=== PATIENT | male | born 1940 | race Asian ===

== ENCOUNTER 2020-09-23 14:35 | Inpatient (IN) | payer MEDICARE ==
[~2020-09-23] VITALS: Ht 170.2 cm; Wt 79.2 kg
[2020-09-23] MEDS ORDERED: Z GUARD REMEDY PASTE 57 GM TUBE TOP PRN (21:00)
--- NOTE | 2020-09-23 21:00 | NUR ---
Pt arrived at 2022 via [place] from [facility]. Admitting Dx Acute CVA. AAO x4. No acute distress noted. Denies pain/ discomfort. VIP group contacted and made aware of admission. Dr. Leroy notified of admission. Med recon verified to continue all meds by Dr. [facility]. Oriented pt to unit. Needs attend too. Physical assessment completed. Skin intact. Safety measures maintained. Bed alarm on. Call light and personal items within reach. Will continue to monitor.
[2020-09-23 21:36] VITALS: BP 115/72
[2020-09-23] MEDS ORDERED: CLOP75TA33 PO (21:40)
[2020-09-23] MEDS ORDERED: ESCI10TA PO (21:40)
[2020-09-23] MEDS ORDERED: CARV3.122 PO (21:40)
[2020-09-23] MEDS ORDERED: ASPI-869 PO (21:40)
[2020-09-23] MEDS ORDERED: FAMO20TA8 PO (21:40)
[2020-09-23] MEDS ORDERED: CLON1TAB12 PO (21:40)
[2020-09-23] MEDS ORDERED: OLOP2.5D12 EACHEYE (21:40)
[2020-09-23] MEDS ORDERED: POLY17PO4 PO (21:40)
[2020-09-23] MEDS ORDERED: ATOR80TA PO (21:40)
[2020-09-23] MEDS ORDERED: DOXE10CA2 PO (21:40)
[2020-09-23] MEDS ORDERED: ENOX30DI5 SQ (21:40)
[2020-09-24] MEDS ORDERED: ONDANSETRON HCL 4 MG TABLET PO PRN (00:45)
--- NOTE | 2020-09-24 02:07 | NUR ---
Pt c/o of nausea and had an episode of emesis. Notified Nephrology group. Dr. Soriano Wilber building consultant with new orders of Zofran 4mg PO PRN, administered, will continue to monitor.
[2020-09-24] MEDS ORDERED: CLONAZEPAM 1 MG TABLET PO SCH (02:45)
[2020-09-24] MEDS ORDERED: CLONAZEPAM 1 MG TABLET PO PRN ×2 (03:00→08:00)
[2020-09-24 04:47] VITALS: BP 131/75
[2020-09-24 07:02] LABS: ALANINE AMINOTRANSFERASE 59 U/L (16-63); ALKALINE PHOSPHATASE 200 U/L (50-136); ASPARTATE AMINOTRANSFERASE 39 U/L (15-37); BILIRUBIN,TOTAL 0.8 mg/dL (0.2-1.0); CARBON DIOXIDE 24 mmol/L (21-32); CHLORIDE 109 mmol/L (98-107); CREATININE 1.8 mg/dL (0.6-1.3); GLUCOSE 107 mg/dL (74-106); POTASSIUM 5.3 mmol/L (3.5-5.1); TOTAL PROTEIN, SERUM 5.6 g/dL (6.4-8.2); UREA NITROGEN, BLOOD 54 mg/dL (7-18)
[2020-09-24 08:00] VITALS: BP 122/71
[2020-09-24] MEDS ORDERED: SODIUM POLYSTYRENE SULFONATE 15 G/60 ML LIQUID UDC PO ONE (08:30)
[2020-09-24] MEDS ORDERED: ASPIRIN EC 81 MG TABLET.DR PO SCH (09:00)
[2020-09-24] MEDS ORDERED: ESCITALOPRAM OXALATE 10 MG TABLET PO SCH (09:00)
[2020-09-24] MEDS ORDERED: ENOXAPARIN SODIUM 30 MG/0.3 ML DISP.SYRIN SQ SCH (09:00)
[2020-09-24] MEDS ORDERED: FAMOTIDINE 20 MG TABLET PO SCH (09:00)
[2020-09-24] MEDS ORDERED: MIRALAX 17 GM POWD.PACK PO SCH (09:00)
[2020-09-24] MEDS ORDERED: CLOPIDOGREL 75 MG TABLET PO SCH (09:00)
[2020-09-24] MEDS ORDERED: ATORVASTATIN 40 MG TABLET PO SCH (09:00)
--- NOTE | 2020-09-24 09:00 | NUR ---
Dr. Nixon notified of pt's lab results with new order in place, will carry out.
[2020-09-24] MEDS: CARVEDILOL 3.125 MG TABLET PO SCH ×2 (09:20→18:29)
--- NOTE | 2020-09-24 10:52 | NUR ---
MARCUS NOTE: SW met with patient and conducted the PHQ0 post stroke depression screening. Patient scored a level of 16 which indicates moderately severe on the screening survey. SW requested a psychiatry consultation from PIERRE Crum to request from doctor. Patient expressed feeling depressed and suicidal however patient did not state an intent or plan to commit suicide. Truck Unloader informed patient about the importance of stroke. Patient accepted resources although hospice social worker provided stroke referrals such as: Stroke Family Warmline at (7-412-5-STROKE) and Caring for a stroke survivor ( ). stucco worker also educated patient on the signs of Stroke and to immediately call 911. Truck Unloader provided patient with a stroke educational packet with information such as; Dietary food, what stroke is, risks, emotional support, finding support, medical management, and effects of stroke.
--- NOTE | 2020-09-24 11:00 | NUR ---
Dr. Nixon notified of request for psych consult, new order in place. M[facility] charge nurse notified, face sheet faxed.
[2020-09-24 12:35] LABS: HEMATOCRIT 39.4 % (36.7-47.1); MEAN CORPUSCULAR HEMOGLOBIN 23.3 uug (23.8-33.4); MEAN CORPUSCULAR VOLUME 78.6 fL (73.0-96.2); PLATELET COUNT (AUTO) 337 K/uL (152-348)
[2020-09-24 14:30] VITALS: BP 100/58
[2020-09-24] MEDS ORDERED: CALCIUM CARBONATE 500 MG TAB.CHEW PO PRN (14:30)
[2020-09-24] MEDS ORDERED: POLYVINYL ALCOHOL OPHT DROPS 15 ML BOTTLE EACHEYE PRN (14:30)
--- NOTE | 2020-09-24 14:34 | NUR ---
Per PT patient able to participate and ambulate with FWW, however had to take breaks to use restroom due to Kayexalate administration. Per PT, pt reported "heartburn pain" during session. Upon assessment, pt denied pain and stated "I think it was because of coffee". Pt also reported weakness today. Vital signs taken L eye edema noted, pt denied pain but stated eye felt "itchy" and that it had "been going on for a while". Dr Nixon notified with new orders in place, will carry out.
--- NOTE | 2020-09-24 15:16 | NUR ---
INTERDISCIPLINARY TEAM CONFERENCE
[2020-09-24 16:45] VITALS: BP 102/59
[2020-09-24 18:32] VITALS: BP 125/76
--- NOTE | 2020-09-24 19:00 | NUR ---
Dr. Nixon at bedside, spoke with pt and pt's Debi. Pt alert, awake, eating dinner. VSS at this time. Due medication administered per order. Pt able to ambulate safely to restroom with FWW. Safety maintained. Will endorse to shift commander nurse for continuity of care.
[2020-09-24 20:00] VITALS: BP 103/61
[2020-09-24] MEDS ORDERED: DOXEPIN 10 MG CAPSULE PO SCH (21:00)
--- NOTE | 2020-09-24 21:15 | NUR ---
received pt resting in bed, family at bedside. Denies any discomfort/ pain. Axox3, able to make needs known. VSS. All due medications administered and tolerated well. Pt able to ambulate safely to restroom with FWW. Safety measures maintained. 2100 Dr. Ponce at bedside, assessed pt and new orders in place. Patient is comfortable and all personal items within reach. Continue plan of care .
[2020-09-24] MEDS ORDERED: CLONAZEPAM 0.5 MG TABLET PO SCH (21:30)
[2020-09-24 23:03] LABS: CARBON DIOXIDE 26 mmol/L (21-32); CHLORIDE 107 mmol/L (98-107); CREATININE 1.7 mg/dL (0.6-1.3); GLUCOSE 98 mg/dL (74-106); MAGNESIUM 2.3 mg/dL (1.8-2.4); POTASSIUM 4.7 mmol/L (3.5-5.1); UREA NITROGEN, BLOOD 47 mg/dL (7-18)
--- NOTE | 2020-09-24 23:30 | NUR ---
pt complaint of chest pain. Sates " intense, feels like my heart is being squeezed" 7/10 pain. Denies any other symptoms, no SOB, pain is not radiating. VVS: BP 106/63 HR [address]%. [address] Tiffany Rossi made aware with new orders of stat EKG, Troponin, potassium, CMP, and magnesium. EKG results sinus rhythm with PAC and Elevated troponin 0.077, Dr.Cheryl Rossi made aware. New order of repeat troponin in 6hr. Administered Klonopin. Will continue to monitor pt.
--- NOTE | 2020-09-25 | NUR ---
pt is sleeping, no acute distress noted. VSS. pt complain of mild chest pain 3-4/10, states " feel a little better. Will continue to monitor.
[2020-09-25 04:00] VITALS: BP 145/79
--- NOTE | 2020-09-25 04:20 | NUR ---
Received critical troponin 6.605 MD made aware with new orders to transfer to Telemetry and start Heparin drip per pharmacy. Pt is resting in bed no acute distress at this time denies any chest pain at the moment. No SOB noted. Vitals BP 145/79 Hr89 O2 96%.
[2020-09-25] MEDS ORDERED: HEPARIN/D5W DRIP 500 ML IV PRN (06:15)
[2020-09-25] MEDS ORDERED: HEPARIN SODIUM,PORCINE 5,000 UNITS/ML VIAL IV ONE ×2 (06:15)
[2020-09-25] MEDS ORDERED: HEPARIN/D5W DRIP 500 ML ONE (06:33)
--- NOTE | 2020-09-25 06:50 | NUR ---
Received PTT 31.7, Dr. Darrius Luna made aware ordered heparin Bolus, order carried out. pharmacy made aware. Will endorse to oncoming shift.
[2020-09-25] MEDS ORDERED: TRAZODONE 50 MG TABLET PO SCH (21:00)
== END 2020-09-25 08:00 | disposition short-term general hospital (02) | DRG 57 ==
LOC: TELE3 09-25 04:37
PROVIDERS: ADMIT Physical Medicine & Rehabilitation Pain Medicine; ATTEND Physical Medicine & Rehabilitation Pain Medicine
DX: I69.354 Hemiplegia and hemiparesis following cerebral infarction affecting left non-dominant side (principal); N17.9 Acute kidney failure, unspecified; I69.393 Ataxia following cerebral infarction; I69.322 Dysarthria following cerebral infarction; I69.391 Dysphagia following cerebral infarction; R13.10 Dysphagia, unspecified; R07.9 Chest pain, unspecified; E78.5 Hyperlipidemia, unspecified; F32.9 Major depressive disorder, single episode, unspecified; I11.0 Hypertensive heart disease with heart failure; I50.9 Heart failure, unspecified; Z95.810 Presence of automatic (implantable) cardiac defibrillator; I25.10 Atherosclerotic heart disease of native coronary artery without angina pectoris; I65.29 Occlusion and stenosis of unspecified carotid artery; Z79.02 Long term (current) use of antithrombotics/antiplatelets
CPT/HCPCS: 36415; 70030-TC; 83735; 85025; 85730; 93005; J1644; J1650; Q0162

== ENCOUNTER 2020-09-25 04:48 | Inpatient (IN) | payer MEDICARE ==
[~2020-09-25] VITALS: Ht 170.2 cm; Wt 78.9 kg
[~2020-09-25 04:48] MED LIST: ASPI-869 PO; ATOR80TA PO; CARV3.122 PO; CLON1TAB12 PO; CLOP75TA33 PO; DOXE10CA2 PO; ENOX30DI5 SQ; ESCI10TA PO; FAMO20TA8 PO; OLOP2.5D12 EACHEYE; POLY17PO4 PO
--- NOTE | 2020-09-25 08:00 | NUR ---
Patient transferred from ARU to Telemetry. Patient awake, alert and orientedx4. On room air. Patient denies pain/ discomfort at this time. patient with right FA #20 gauge IV heplock. Will continue to monitor.
[2020-09-25] MEDS ORDERED: HEPARIN/D5W 25000 UNITS/500 ML BAG IV ONE (09:00)
[2020-09-25] MEDS ORDERED: CLOPIDOGREL 75 MG TABLET PO SCH (09:00)
[2020-09-25] MEDS ORDERED: ASPIRIN 81 MG TAB.CHEW PO SCH (09:00)
[2020-09-25] MEDS ORDERED: HEPARIN/D5W DRIP 500 ML IV PRN (09:15)
--- NOTE | 2020-09-25 09:30 | NUR ---
Patient started on Heparin/ D5W drip 500ml per MD order. Heparin drip starting at 1185 units at 23.7ml/hr, per protocol. Patient tolerating well. Will continue to monitor.
[2020-09-25] MEDS ORDERED: METOPROLOL SUCCINATE XL 50 MG TAB.SR.24H PO SCH (10:00)
[2020-09-25] MEDS: ATORVASTATIN 40 MG TABLET PO SCH ×2 (10:32→20:24)
[2020-09-25 11:32] VITALS: BP 124/53
[2020-09-25] MEDS ORDERED: ONDANSETRON HCL 4 MG TABLET PO PRN (12:15)
[2020-09-25] MEDS ORDERED: LORAZEPAM 0.5 MG TABLET PO PRN (12:45)
--- NOTE | 2020-09-25 15:40 | NUR ---
Patient repeat PTT is 114.7. Heparin drip held per protocol. MD informed.
[2020-09-25 16:00] VITALS: BP 113/68
--- NOTE | 2020-09-25 18:57 | NUR ---
Nursing report given to PIERRE Oswald of [facility] for transfer.
--- NOTE | 2020-09-25 19:20 | NUR ---
Received pt in bed, awake and verbally responsive, able to make needs known. Denies any chest pain, dizziness or lightheadedness. Pt with ongoing heparin drip at 935 units on his R forearm, infusing well. Safety measures initiated, call light within reach. For transfer to [facility], will continue to monitor.
--- NOTE | 2020-09-25 21:15 | NUR ---
Transported to [facility] via [facility]. No signs of acute distress, no complains of chest pain, dizziness or lightheadedness. Okay to transfer with heparin drip on hold per Dr. Rivera. Belongings with the pt. Stable.
[2020-10-21] MEDS ORDERED: FURO40TA5 PO (17:35)
[2020-10-21] MEDS ORDERED: ASPI-618 PO (17:35)
[2020-10-21] MEDS ORDERED: ATOR40TA PO (17:35)
[2020-10-21] MEDS ORDERED: Nepro PO (17:35)
[2020-10-21] MEDS ORDERED: MENT71OI TOP (17:35)
[2020-10-21] MEDS ORDERED: FOLI0.8T2 PO (17:35)
[2020-10-21] MEDS ORDERED: PANT40TA2 PO (17:35)
== END 2020-09-25 21:15 | disposition short-term general hospital (02) | DRG 282 ==
LOC: TELE3 04:48
PROVIDERS: ADMIT Internal Medicine; ATTEND Internal Medicine
DX: I21.4 Non-ST elevation (NSTEMI) myocardial infarction (principal); I25.10 Atherosclerotic heart disease of native coronary artery without angina pectoris; I25.5 Ischemic cardiomyopathy; Z98.61 Coronary angioplasty status; Z86.73 Personal history of transient ischemic attack (TIA), and cerebral infarction without residual deficits; Z20.822 Contact with and (suspected) exposure to COVID-19
CPT/HCPCS: 36415; 71045; 85730; 93307; G0378; J1644; Q0162

== ENCOUNTER 2020-10-08 15:01 | Inpatient (IN) | payer MEDICARE, BC ==
[~2020-10-08] VITALS: Ht 170.2 cm; Wt 78.9 kg
[2020-10-08] MEDS ORDERED: OLOPATADINE 0.1% OPHT DROP 5 ML BOTTLE EACHEYE PRN (18:30)
[2020-10-08 20:00] VITALS: BP 120/63
[2020-10-08] MEDS: CARVEDILOL 3.125 MG TABLET PO SCH (20:43)
[2020-10-08] MEDS: DOXEPIN 10 MG CAPSULE PO SCH (21:02)
[2020-10-08] MEDS: CLONAZEPAM 1 MG TABLET PO PRN (21:30)
[2020-10-09 04:00] VITALS: BP 110/69
[2020-10-09 08:03] VITALS: BP 106/71
[2020-10-09] MEDS: CLOPIDOGREL 75 MG TABLET PO SCH (09:39)
[2020-10-09] MEDS: CARVEDILOL 3.125 MG TABLET PO SCH ×2 (09:39→18:00)
[2020-10-09] MEDS: ATORVASTATIN 40 MG TABLET PO SCH (09:39)
[2020-10-09] MEDS: ESCITALOPRAM OXALATE 10 MG TABLET PO SCH (09:39)
[2020-10-09] MEDS: MIRALAX 17 GM POWD.PACK PO SCH (09:39)
[2020-10-09] MEDS ORDERED: ASPI-866 PO (12:45)
[2020-10-09] MEDS ORDERED: BUME1TAB8 PO (12:47)
[2020-10-09] MEDS: FAMOTIDINE 20 MG TABLET PO SCH (13:39)
[2020-10-09] MEDS: ASPIRIN EC 81 MG TABLET.DR PO SCH (13:39)
[2020-10-09 14:05] LABS: *BILIRUBIN,URIN 2+ (NEGATIVE); *BLOOD, URINE 3+ (NEGATIVE); *CLARITY,URINE CLEAR (CLEAR); *COLOR,URINE YELLOW (YELLOW); *KETONES,URINE NEGATIVE (NEGATIVE); LEUKOCYTE ESTERASE ,URINE 1+ (NEGATIVE); NITRITE, URINE NEGATIVE (NEGATIVE); UGLUCOSE NEGATIVE (NEGATIVE)
[2020-10-09 14:06] LABS: *CREATININE,URINE 149.1 mg/dL (30-125); *URINE TOTAL PROTEIN RANDOM 229.2 mg/dL (<150/24HR)
[2020-10-09 14:45] LABS: *OCCULT BLOOD STOOL POSITIVE (NEGATIVE)
[2020-10-09 16:05] VITALS: BP 117/68
[2020-10-09 18:18] LABS: RBC,URINE 80-100 /HPF (0-3)
[2020-10-09 18:19] LABS: BACTERIA,URINE MA /HPF (NONE SEEN); COARSE GRANULAR CASTS,URINE FEW /LPF; SQUAMOUS EPITHELIAL CELL,UR FEW /HPF (NONE SEEN); URINE AMORPHOUS URATE MANY /HPF
[2020-10-09 19:01] LABS: HEMATOCRIT 44.3 % (36.7-47.1); MEAN CORPUSCULAR HEMOGLOBIN 22.6 uug (23.8-33.4); MEAN CORPUSCULAR VOLUME 75.6 fL (73.0-96.2); PLATELET COUNT (AUTO) 187 K/uL (152-348)
[2020-10-09 19:04] LABS: ALANINE AMINOTRANSFERASE 508 U/L (16-63); ALKALINE PHOSPHATASE 316 U/L (50-136); ASPARTATE AMINOTRANSFERASE 287 U/L (15-37); BILIRUBIN,TOTAL 4.4 mg/dL (0.2-1.0); CARBON DIOXIDE 23 mmol/L (21-32); CHLORIDE 102 mmol/L (98-107); CREATININE 4.8 mg/dL (0.6-1.3); GLUCOSE 130 mg/dL (74-106); MAGNESIUM 2.7 mg/dL (1.8-2.4); PHOSPHOROUS 6.3 mg/dL (2.5-4.9); TOTAL PROTEIN, SERUM 6.1 g/dL (6.4-8.2)
[2020-10-09 19:12] LABS: UREA NITROGEN, BLOOD 91 mg/dL (7-18)
[2020-10-09 20:00] VITALS: BP 103/60
[2020-10-09] MEDS: DOXEPIN 10 MG CAPSULE PO SCH (21:00)
[2020-10-10] MEDS: CLONAZEPAM 1 MG TABLET PO PRN (00:29)
[2020-10-10 04:00] VITALS: BP 110/69
[2020-10-10 05:45] LABS: HEMATOCRIT 36.5 % (36.7-47.1); MEAN CORPUSCULAR HEMOGLOBIN 22.8 uug (23.8-33.4); MEAN CORPUSCULAR VOLUME 73.8 fL (73.0-96.2); PLATELET COUNT (AUTO) 176 K/uL (152-348)
[2020-10-10 06:13] LABS: IRON, SERUM 72 ug/dL (50-175)
[2020-10-10 06:30] LABS: EOSINOPHILS % (MANUAL) 2 % (0-8); LYMPHOCYTES % (MANUAL) 5 % (20-40); MONOCYTES % (MANUAL) 8 % (2-10); NEUTROPHILS % (MANUAL) 85 % (42-75)
[2020-10-10 07:12] LABS: ALANINE AMINOTRANSFERASE 380 U/L (16-63); ALKALINE PHOSPHATASE 240 U/L (50-136); ASPARTATE AMINOTRANSFERASE 181 U/L (15-37); BILIRUBIN,TOTAL 3.5 mg/dL (0.2-1.0); CARBON DIOXIDE 24 mmol/L (21-32); CHLORIDE 104 mmol/L (98-107); CREATININE 4.9 mg/dL (0.6-1.3); FERRITIN 532 ng/mL (26-388); GLUCOSE 103 mg/dL (74-106); MAGNESIUM 2.6 mg/dL (1.8-2.4); PHOSPHOROUS 6.4 mg/dL (2.5-4.9); POTASSIUM 3.7 mmol/L (3.5-5.1)
[2020-10-10 07:26] LABS: CREATINE KINASE, TOTAL 57 U/L (39-308)
[2020-10-10 07:32] LABS: UREA NITROGEN, BLOOD 92 mg/dL (7-18)
[2020-10-10 08:59] VITALS: BP 115/72
[2020-10-10] MEDS: FAMOTIDINE 20 MG TABLET PO SCH (09:00)
[2020-10-10] MEDS: ESCITALOPRAM OXALATE 10 MG TABLET PO SCH (09:00)
[2020-10-10] MEDS: MIRALAX 17 GM POWD.PACK PO SCH (09:00)
[2020-10-10] MEDS: ASPIRIN EC 81 MG TABLET.DR PO SCH (09:00)
[2020-10-10] MEDS: ATORVASTATIN 40 MG TABLET PO SCH (09:00)
[2020-10-10] MEDS: CLOPIDOGREL 75 MG TABLET PO SCH (09:00)
[2020-10-10] MEDS: CARVEDILOL 3.125 MG TABLET PO SCH ×2 (11:46→18:43)
[2020-10-10 15:32] VITALS: BP 126/63
[2020-10-10 20:10] VITALS: BP 95/51
[2020-10-10] MEDS: DOXEPIN 10 MG CAPSULE PO SCH (20:34)
[2020-10-11 05:10] VITALS: BP 101/61
[2020-10-11 07:09] LABS: HEMATOCRIT 34.2 % (36.7-47.1); MEAN CORPUSCULAR HEMOGLOBIN 23.4 uug (23.8-33.4); MEAN CORPUSCULAR VOLUME 73.3 fL (73.0-96.2); PLATELET COUNT (AUTO) 166 K/uL (152-348)
[2020-10-11 07:37] LABS: THYROID STIMULATING HORMONE 5.343 mIU/mL (0.358-3.740)
[2020-10-11 07:38] LABS: ALANINE AMINOTRANSFERASE 306 U/L (16-63); ALKALINE PHOSPHATASE 215 U/L (50-136); ASPARTATE AMINOTRANSFERASE 102 U/L (15-37); BILIRUBIN,TOTAL 3.5 mg/dL (0.2-1.0); CARBON DIOXIDE 24 mmol/L (21-32); CHLORIDE 101 mmol/L (98-107); CHOLESTEROL 52 mg/dL (<200); GLUCOSE 85 mg/dL (74-106); HDL CHOLESTEROL 11 mg/dL (40-60); MAGNESIUM 2.6 mg/dL (1.8-2.4); PHOSPHOROUS 6.6 mg/dL (2.5-4.9); TOTAL PROTEIN, SERUM 4.9 g/dL (6.4-8.2); TRIGLYCERIDES 67 MG/DL (30-150)
[2020-10-11 07:47] LABS: UREA NITROGEN, BLOOD 93 mg/dL (7-18)
[2020-10-11 08:00] VITALS: BP 98/54
[2020-10-11 08:06] LABS: HEPATITIS B SURFACE AB Non Reactive (.); HEPATITIS B SURFACE AG Negative (Negative)
[2020-10-11] MEDS: CLOPIDOGREL 75 MG TABLET PO SCH (10:20)
[2020-10-11] MEDS: ESCITALOPRAM OXALATE 10 MG TABLET PO SCH (10:21)
[2020-10-11] MEDS: ATORVASTATIN 40 MG TABLET PO SCH (10:21)
[2020-10-11] MEDS: ASPIRIN EC 81 MG TABLET.DR PO SCH (10:21)
[2020-10-11] MEDS: CARVEDILOL 3.125 MG TABLET PO SCH ×2 (10:21→17:54)
[2020-10-11] MEDS: FAMOTIDINE 20 MG TABLET PO SCH (10:22)
[2020-10-11] MEDS: MIRALAX 17 GM POWD.PACK PO SCH (10:24)
[2020-10-11] MEDS ORDERED: LORAZEPAM 2 MG/1 ML VIAL IV ONE (12:30)
[2020-10-11] MEDS: IV 1/2NS 1000 ML 1,000 ML IV PRN (12:56)
[2020-10-11 16:54] VITALS: BP 101/65
[2020-10-11] MEDS: DOXEPIN 10 MG CAPSULE PO SCH (20:23)
[2020-10-11] MEDS ORDERED: ATORVASTATIN 10 MG TABLET PO SCH (21:00)
[2020-10-11 21:02] VITALS: BP 102/55
[2020-10-12] MEDS: IV 1/2NS 1000 ML 1,000 ML IV PRN (02:43)
[2020-10-12 04:50] VITALS: BP 103/49
[2020-10-12 08:00] VITALS: BP 105/57
[2020-10-12] MEDS: CARVEDILOL 3.125 MG TABLET PO SCH ×2 (08:00→18:00)
[2020-10-12] MEDS: CLOPIDOGREL 75 MG TABLET PO SCH (08:52)
[2020-10-12] MEDS: ASPIRIN EC 81 MG TABLET.DR PO SCH (08:52)
[2020-10-12] MEDS: ESCITALOPRAM OXALATE 10 MG TABLET PO SCH (08:53)
[2020-10-12] MEDS: FAMOTIDINE 20 MG TABLET PO SCH (08:53)
[2020-10-12] MEDS: MIRALAX 17 GM POWD.PACK PO SCH (08:53)
[2020-10-12] MEDS: PIPERACILLIN/TAZO 2.25 G in IV DEXTROSE 5% 50 ML IV SCH ×3 (11:43→21:04)
[2020-10-12 12:00] VITALS: BP 110/52
[2020-10-12 12:13] LABS: *BILIRUBIN,URIN NEGATIVE (NEGATIVE); *BLOOD, URINE 2+ (NEGATIVE); *CLARITY,URINE CLOUDY (CLEAR); *COLOR,URINE YELLOW (YELLOW); *KETONES,URINE NEGATIVE (NEGATIVE); LEUKOCYTE ESTERASE ,URINE 3+ (NEGATIVE); NITRITE, URINE NEGATIVE (NEGATIVE); PH,URINE 5.5 (5.0-8.0); UGLUCOSE NEGATIVE (NEGATIVE)
[2020-10-12 12:41] LABS: BACTERIA,URINE MANY /HPF (NONE SEEN); RBC,URINE 20-50 /HPF (0-3); SQUAMOUS EPITHELIAL CELL,UR FEW /HPF (NONE SEEN); WBC,URINE TNTC /HPF (0-3)
[2020-10-12 12:42] LABS: URINE AMORPHOUS URATE MANY /HPF
[2020-10-12 16:00] VITALS: BP 108/60
[2020-10-12 20:00] VITALS: BP 92/55
[2020-10-12] MEDS: DOXEPIN 10 MG CAPSULE PO SCH (21:04)
[2020-10-12] MEDS: ATORVASTATIN 40 MG TABLET PO SCH (21:04)
[2020-10-12] MEDS: CLONAZEPAM 1 MG TABLET PO PRN (21:04)
[2020-10-13 05:05] VITALS: BP 123/68
[2020-10-13] MEDS: PIPERACILLIN/TAZO 2.25 G in IV DEXTROSE 5% 50 ML IV SCH ×2 (05:07→17:28)
[2020-10-13 08:00] VITALS: BP 130/61
[2020-10-13] MEDS: ESCITALOPRAM OXALATE 10 MG TABLET PO SCH (08:28)
[2020-10-13] MEDS: ASPIRIN EC 81 MG TABLET.DR PO SCH (08:28)
[2020-10-13] MEDS: FAMOTIDINE 20 MG TABLET PO SCH (08:28)
[2020-10-13] MEDS: MIRALAX 17 GM POWD.PACK PO SCH (08:29)
[2020-10-13] MEDS: CLOPIDOGREL 75 MG TABLET PO SCH (08:29)
[2020-10-13] MEDS: CARVEDILOL 3.125 MG TABLET PO SCH ×2 (09:00→18:00)
[2020-10-13] MEDS ORDERED: PIPERACILLIN/TAZO 0.75 G in IV DEXTROSE 5% 50 ML IV PRN (09:15)
[2020-10-13 10:32] LABS: CARBON DIOXIDE 25 mmol/L (21-32); CHLORIDE 101 mmol/L (98-107); CREATININE 4.5 mg/dL (0.6-1.3); GLUCOSE 146 mg/dL (74-106); POTASSIUM 3.3 mmol/L (3.5-5.1)
[2020-10-13 10:38] LABS: UREA NITROGEN, BLOOD 91 mg/dL (7-18)
[2020-10-13 13:40] LABS: *BILIRUBIN,URIN NEGATIVE (NEGATIVE); *BLOOD, URINE 1+ (NEGATIVE); *COLOR,URINE YELLOW (YELLOW); *KETONES,URINE NEGATIVE (NEGATIVE); LEUKOCYTE ESTERASE ,URINE 1+ (NEGATIVE); NITRITE, URINE NEGATIVE (NEGATIVE); PH,URINE 5.5 (5.0-8.0); UGLUCOSE NEGATIVE (NEGATIVE)
[2020-10-13 13:49] LABS: *URINE TOTAL PROTEIN RANDOM 82.4 mg/dL (<150/24HR)
[2020-10-13 14:28] LABS: *CLARITY,URINE SLIGHTLY HAZY (CLEAR)
[2020-10-13 14:29] LABS: BACTERIA,URINE FEW /HPF (NONE SEEN); SQUAMOUS EPITHELIAL CELL,UR NONE SEEN /HPF (NONE SEEN); URIC ACID CRYSTALS,URINE MODERATE /HPF (NONE SEEN)
[2020-10-13 16:00] VITALS: BP 103/59
[2020-10-13] MEDS ORDERED: POTASSIUM CHLORIDE 20 MEQ TAB.PRT.SR PO ONE (17:15)
[2020-10-13] MEDS: ONDANSETRON 4 MG/2 ML VIAL IV PRN ×2 (17:47→20:29)
[2020-10-13 20:00] VITALS: BP 118/68
[2020-10-13] MEDS: DOXEPIN 10 MG CAPSULE PO SCH (20:30)
[2020-10-13] MEDS: ATORVASTATIN 40 MG TABLET PO SCH (20:30)
[2020-10-13] MEDS: CLONAZEPAM 1 MG TABLET PO PRN (20:30)
[2020-10-14 04:00] VITALS: BP 101/48
[2020-10-14 06:08] LABS: HEMATOCRIT 33.8 % (36.7-47.1); MEAN CORPUSCULAR HEMOGLOBIN 23.5 uug (23.8-33.4); MEAN CORPUSCULAR VOLUME 74.7 fL (73.0-96.2); PLATELET COUNT (AUTO) 190 K/uL (152-348)
[2020-10-14] MEDS: PIPERACILLIN/TAZO 2.25 G in IV DEXTROSE 5% 50 ML IV SCH (06:09)
[2020-10-14 06:25] LABS: BASOPHILS % (MANUAL) 1 % (0-2); EOSINOPHILS % (MANUAL) 1 % (0-8); LYMPHOCYTES % (MANUAL) 6 % (20-40); MONOCYTES % (MANUAL) 7 % (2-10); NEUTROPHILS % (MANUAL) 85 % (42-75)
[2020-10-14 06:27] LABS: ALANINE AMINOTRANSFERASE 172 U/L (16-63); ALKALINE PHOSPHATASE 200 U/L (50-136); ASPARTATE AMINOTRANSFERASE 40 U/L (15-37); BILIRUBIN,TOTAL 2.7 mg/dL (0.2-1.0); CARBON DIOXIDE 25 mmol/L (21-32); CHLORIDE 103 mmol/L (98-107); CREATININE 4.1 mg/dL (0.6-1.3); GLUCOSE 111 mg/dL (74-106); MAGNESIUM 2.5 mg/dL (1.8-2.4); PHOSPHOROUS 5.7 mg/dL (2.5-4.9); POTASSIUM 3.8 mmol/L (3.5-5.1); TOTAL PROTEIN, SERUM 4.9 g/dL (6.4-8.2)
[2020-10-14 06:40] LABS: UREA NITROGEN, BLOOD 85 mg/dL (7-18)
[2020-10-14 08:00] VITALS: BP 108/59
[2020-10-14] MEDS: CARVEDILOL 3.125 MG TABLET PO SCH (08:00)
[2020-10-14 08:06] LABS: A/G RATIO 1.1 (0.7-1.7); ALBUMIN 2.7 g/dL (2.9-4.4); ALPHA-1-GLOBULIN 0.4 g/dL (0.0-0.4); ALPHA-2-GLOBULIN 0.5 g/dL (0.4-1.0); BETA GLOBULIN 0.9 g/dL (0.7-1.3); GAMMA GLOBULIN 0.6 g/dL (0.4-1.8); GLOBULIN, TOTAL 2.4 g/dL (2.2-3.9); M-SPIKE Not Observed g/dL (Not Observed)
[2020-10-14] MEDS: CLOPIDOGREL 75 MG TABLET PO SCH ×2 (09:00→12:33)
[2020-10-14] MEDS: MIRALAX 17 GM POWD.PACK PO SCH (09:00)
[2020-10-14] MEDS: ASPIRIN EC 81 MG TABLET.DR PO SCH ×2 (09:00→12:33)
[2020-10-14] MEDS: FAMOTIDINE 20 MG TABLET PO SCH (09:00)
[2020-10-14] MEDS: ESCITALOPRAM OXALATE 10 MG TABLET PO SCH (11:42)
[2020-10-14 12:15] LABS: HEMATOCRIT 35.6 % (36.7-47.1)
[2020-10-14] MEDS ORDERED: PIPERACILLIN/TAZO 2.25 G in IV DEXTROSE 5% 50 ML IV SCH (14:00)
[2020-10-15] MEDS ORDERED: OLOP2.5D12 EACHEYE (08:05)
[2020-10-15] MEDS ORDERED: PIPE3.379 IV (08:07)
[2020-10-21] MEDS ORDERED: FURO40TA5 PO (17:35)
[2020-10-21] MEDS ORDERED: PANT40TA2 PO (17:35)
[2020-10-21] MEDS ORDERED: ASPI-618 PO (17:35)
[2020-10-21] MEDS ORDERED: ATOR40TA PO (17:35)
[2020-10-21] MEDS ORDERED: Nepro PO (17:35)
[2020-10-21] MEDS ORDERED: MENT71OI TOP (17:35)
[2020-10-21] MEDS ORDERED: FOLI0.8T2 PO (17:35)
== END 2020-10-14 13:17 | disposition short-term general hospital (02) | DRG 264 ==
PROVIDERS: ADMIT Physical Medicine & Rehabilitation Pain Medicine; ATTEND Physical Medicine & Rehabilitation Pain Medicine
PROC: 05HA33Z Insertion of Infusion Device into Left Brachial Vein, Percutaneous Approach (ICD-10-PCS; principal; 2020-10-11)
PROC: 05HM33Z Insertion of Infusion Device into Right Internal Jugular Vein, Percutaneous Approach (ICD-10-PCS; 2020-10-13)
PROC: B543ZZA Ultrasonography of Right Jugular Veins, Guidance (ICD-10-PCS; 2020-10-13)
PROC: 0W363ZZ Control Bleeding in Neck, Percutaneous Approach (ICD-10-PCS; 2020-10-14)
DX: I25.5 Ischemic cardiomyopathy (principal); A41.9 Sepsis, unspecified organism; I21.4 Non-ST elevation (NSTEMI) myocardial infarction; E43 Unspecified severe protein-calorie malnutrition; N17.0 Acute kidney failure with tubular necrosis; G93.40 Encephalopathy, unspecified; I13.0 Hypertensive heart and chronic kidney disease with heart failure and stage 1 through stage 4 chronic kidney disease, or unspecified chronic kidney disease; R18.8 Other ascites; D68.59 Other primary thrombophilia; I50.22 Chronic systolic (congestive) heart failure; I69.354 Hemiplegia and hemiparesis following cerebral infarction affecting left non-dominant side; T82.838A Hemorrhage due to vascular prosthetic devices, implants and grafts, initial encounter; I42.9 Cardiomyopathy, unspecified; D63.8 Anemia in other chronic diseases classified elsewhere; E78.5 Hyperlipidemia, unspecified; N18.9 Chronic kidney disease, unspecified; R11.2 Nausea with vomiting, unspecified; I25.10 Atherosclerotic heart disease of native coronary artery without angina pectoris; I51.3 Intracardiac thrombosis, not elsewhere classified; N14.1 Nephropathy induced by other drugs, medicaments and biological substances; T45.515A Adverse effect of anticoagulants, initial encounter; Y92.239 Unspecified place in hospital as the place of occurrence of the external cause; I50.82 Biventricular heart failure; Z95.5 Presence of coronary angioplasty implant and graft; Z95.810 Presence of automatic (implantable) cardiac defibrillator; K21.9 Gastro-esophageal reflux disease without esophagitis; I73.9 Peripheral vascular disease, unspecified; Y84.1 Kidney dialysis as the cause of abnormal reaction of the patient, or of later complication, without mention of misadventure at the time of the procedure; Y92.230 Patient room in hospital as the place of occurrence of the external cause
CPT/HCPCS: 36415; 70030-TC; 71045; 76770; 83550; 83605; 83735; 83970; 84100; 84155; 84156; 84165; 84300; 84443; 85018; 85025; 85610; 86706; 86803; 87040; 87077; 87086; 87340; 90937; A4663; J2060; J2405; J2543; J3490; J7060

== ENCOUNTER 2020-10-14 13:37 | Inpatient (IN) | payer MEDICARE, BC ==
[~2020-10-14] VITALS: Ht 170.2 cm; Wt 73.5 kg
[~2020-10-14 13:37] MED LIST changes: +ASPI-866 PO; -ASPI-869 PO; +BUME1TAB8 PO; -ENOX30DI5 SQ
[2020-10-14 15:14] VITALS: BP 121/68
--- NOTE | 2020-10-14 17:00 | NUR ---
patient is admitted from rehab unit, alert, oriented x3, catheter for dialysis is intact at right side of neck, no active bleeding noted, dressing intact, patient is getting dialyzed, MD Nixon made aware that meds need to be recon.
[2020-10-14 17:59] LABS: HEMATOCRIT 35.5 % (36.7-47.1)
--- NOTE | 2020-10-14 19:20 | NUR ---
patient dialyzed no output, catheter intact, no bleeding noted
[2020-10-14 20:00] VITALS: BP 106/64
[2020-10-14] MEDS ORDERED: ATORVASTATIN 40 MG TABLET PO SCH (21:00)
[2020-10-14] MEDS: CLONAZEPAM 1 MG TABLET PO PRN (21:19)
[2020-10-14] MEDS ORDERED: DOXEPIN 10 MG CAPSULE ONE (21:37)
[2020-10-14] MEDS: DOXEPIN 10 MG CAPSULE PO SCH (21:49)
[2020-10-15 04:00] VITALS: BP 117/72
--- NOTE | 2020-10-15 04:33 | NUR ---
Pt remains awake and forgetful during the shift. Has episodes of restlessness. Reorientation provided. Tolerating 2L NC with O2 sats up to 95%. No acute distress noted. Medsurg status. Bilateral lower extremity edema noted. Elevated legs on pillow. Right IJ permacath clean, dry and intact. No s/s of bleeding during the night, no new skin breakdown noted. Safety precautions maintained, pt free from falls. Call light within reach. VSS, afebrile. Continue plan of care.
[2020-10-15 06:53] LABS: HEMATOCRIT 35.1 % (36.7-47.1); MEAN CORPUSCULAR HEMOGLOBIN 23.8 uug (23.8-33.4); MEAN CORPUSCULAR VOLUME 75.8 fL (73.0-96.2); PLATELET COUNT (AUTO) 209 K/uL (152-348)
[2020-10-15 07:07] LABS: ALANINE AMINOTRANSFERASE 175 U/L (16-63); ALKALINE PHOSPHATASE 190 U/L (50-136); ASPARTATE AMINOTRANSFERASE 43 U/L (15-37); BILIRUBIN,TOTAL 2.8 mg/dL (0.2-1.0); CARBON DIOXIDE 23 mmol/L (21-32); CHLORIDE 104 mmol/L (98-107); CREATININE 3.2 mg/dL (0.6-1.3); GLUCOSE 118 mg/dL (74-106); TOTAL PROTEIN, SERUM 5.6 g/dL (6.4-8.2); UREA NITROGEN, BLOOD 63 mg/dL (7-18)
[2020-10-15] MEDS ORDERED: CARVEDILOL 3.125 MG TABLET PO SCH (08:00)
--- NOTE | 2020-10-15 08:00 | NUR ---
received change of shift report, pt in bed resting. pt a/ox3 forgetful, left elbow abrasion, lower aydin leg pitting, pt on 2L O2 via NC, no signs of distress, no reports of pain. pt voiding via bedpan, pt has IV on the left Upper arm piccline, saline lock, and permacath on the right IJ. bed low and locked, call light within reach, will continue with plan of care.
[2020-10-15] MEDS ORDERED: OLOP2.5D12 EACHEYE (08:05)
[2020-10-15] MEDS ORDERED: PIPE3.379 IV (08:07)
[2020-10-15] MEDS ORDERED: CARVEDILOL 3.125 MG TABLET PO ONE (08:15)
[2020-10-15] MEDS: ASPIRIN EC 81 MG TABLET.DR PO SCH (08:37)
[2020-10-15] MEDS: ESCITALOPRAM OXALATE 10 MG TABLET PO SCH (08:38)
[2020-10-15] MEDS: CLOPIDOGREL 75 MG TABLET PO SCH (08:38)
[2020-10-15] MEDS: FAMOTIDINE 20 MG TABLET PO SCH (08:38)
[2020-10-15] MEDS ORDERED: FAMOTIDINE 20 MG TABLET PO SCH (09:00)
[2020-10-15] MEDS ORDERED: Medication Not On Formulary EA (Atorvastatin Calcium (Lipitor) 40 MG) PO SCH (09:00)
[2020-10-15] MEDS: MIRALAX 17 GM POWD.PACK PO SCH (09:19)
--- NOTE | 2020-10-15 11:30 | NUR ---
pt started on HD with PIERRE Santos at bedside. will continue to monitor
[2020-10-15 11:45] VITALS: BP 103/60
[2020-10-15] MEDS ORDERED: PIPERACILLIN/TAZO 2.25 G in IV DEXTROSE 5% 50 ML IV SCH (13:00)
--- NOTE | 2020-10-15 14:30 | NUR ---
pt completed HD, 500 out BP 108/58 pulse 87, pt tolerated well, will continue with plan of care.
[2020-10-15] MEDS ORDERED: ALBUMIN HUMAN 25% 50 ML IV ONE (16:30)
[2020-10-15] MEDS: CARVEDILOL 3.125 MG TABLET PO SCH (17:52)
--- NOTE | 2020-10-15 19:30 | NUR ---
RECEIVED PT AWAKE, ALERT AND ORIENTEDX2. PT IN NO ACUTE RESPIRATORY DISTRESS. IV INTACT. SAFETY AND COMFORT PROVIDED. WILL CONTINUE TO MONITOR.
[2020-10-15 20:00] VITALS: BP 117/70
[2020-10-15] MEDS: ATORVASTATIN 40 MG TABLET PO SCH (20:01)
[2020-10-15] MEDS: DOXEPIN 10 MG CAPSULE PO SCH (20:02)
[2020-10-15] MEDS: CLONAZEPAM 1 MG TABLET PO PRN (21:38)
[2020-10-16 05:03] VITALS: BP 125/57
--- NOTE | 2020-10-16 06:24 | NUR ---
PT SLEPT INTERMITTENTLY. PT IN NO ACUTE DISTRESS. PT HAVE EPISODES OF FORGETFULNESS. NEEDS REORIENTATION. TRYING TO GET OUT OF THE BED. PRN KLONOPIN GIVEN AT 2138H. PT TOLERATED IT WELL. PRESCRIBED MEDICATION GIVEN AND PT TOLERATED IT WELL. PT ON 2L NASAL CANNULA. IV INTACT. SAFETY AND COMFORT PROVIDED. WILL CONTINUE TO MONITOR.
[2020-10-16 07:08] LABS: ALANINE AMINOTRANSFERASE 152 U/L (16-63); ALKALINE PHOSPHATASE 193 U/L (50-136); ASPARTATE AMINOTRANSFERASE 44 U/L (15-37); BILIRUBIN,TOTAL 2.8 mg/dL (0.2-1.0); CARBON DIOXIDE 25 mmol/L (21-32); CHLORIDE 107 mmol/L (98-107); GLUCOSE 123 mg/dL (74-106); LIPASE 177 U/L (73-393); MAGNESIUM 2.4 mg/dL (1.8-2.4); PHOSPHOROUS 4.8 mg/dL (2.5-4.9); POTASSIUM 4.2 mmol/L (3.5-5.1); TOTAL PROTEIN, SERUM 5.5 g/dL (6.4-8.2); UREA NITROGEN, BLOOD 48 mg/dL (7-18)
[2020-10-16 07:12] LABS: HEMATOCRIT 35.5 % (36.7-47.1); MEAN CORPUSCULAR HEMOGLOBIN 23.7 uug (23.8-33.4); MEAN CORPUSCULAR VOLUME 78.1 fL (73.0-96.2); PLATELET COUNT (AUTO) 162 K/uL (152-348)
[2020-10-16 08:00] VITALS: BP 137/58
--- NOTE | 2020-10-16 08:00 | NUR ---
received change of shift report. pt NPO for US of liver. pt a/ox3 on 2L O2 NC, saturating at 99%. pt voiding via diaper, right IJ dialysis catheter, left Upper arm PICC line. pt sleeping in bed, easily arousable will continue to monitor.
[2020-10-16] MEDS: ASPIRIN EC 81 MG TABLET.DR PO SCH (08:49)
[2020-10-16] MEDS: MIRALAX 17 GM POWD.PACK PO SCH (08:50)
[2020-10-16] MEDS: FAMOTIDINE 20 MG TABLET PO SCH (08:50)
[2020-10-16] MEDS: CLOPIDOGREL 75 MG TABLET PO SCH (08:50)
[2020-10-16] MEDS: CARVEDILOL 3.125 MG TABLET PO SCH ×2 (08:50→18:37)
[2020-10-16] MEDS: ESCITALOPRAM OXALATE 10 MG TABLET PO SCH (08:50)
[2020-10-16] MEDS: FUROSEMIDE 20 MG/2 ML VIAL IV SCH (08:50)
[2020-10-16 12:00] VITALS: BP_SYST 132; BP_SYST 136; BP_DIAS 55; BP_DIAS 68
[2020-10-16 15:41] VITALS: BP 133/71
--- NOTE | 2020-10-16 18:45 | NUR ---
PT IN BED RESTING, FAMILY AT BEDSIDE. PT A/OX3, CALL LIGHT WITHIN REACH, IV ACCESS PATENT AND INTACT, PORTACATH IN TACT, NO BLEEDING. PT HAD BM AND ATE ALL FOOD, GOOD APPETITE. BED LOW AND LOCKED. ALL MEDICATIONS GIVEN ORDERED, ALL NEEDS MET THIS SHIFT WILL ENDORSE TO ONCOMING NURSE.
[2020-10-16 20:00] VITALS: BP 108/53
[2020-10-16] MEDS: ATORVASTATIN 40 MG TABLET PO SCH (21:03)
[2020-10-16] MEDS: DOXEPIN 10 MG CAPSULE PO SCH (21:22)
[2020-10-17 04:00] VITALS: BP 118/60
[2020-10-17] MEDS: CARVEDILOL 3.125 MG TABLET PO SCH ×2 (08:00→18:00)
--- NOTE | 2020-10-17 08:00 | NUR ---
RECEIVED CHANGE OF SHIFT REPORT. PT A/OX3, SOMETIMES FORGETFUL, PT IN BED RESTING, PT ON 2L O2 VIA NC, NO SIGNS OF DISTRESS, NO REPORTS OF PAIN AT THIS TIME. PT VOIDING VIA DIAPER, IV ON THE LEFT UA PICC LINE AND PERMACATH ON THE RIGHT IJ, NO SIGNS OF BLEEDING, INTACT. CALL LIGHT WITHIN REACH, WILL CONTINUE WITH PLAN OF CARE.
[2020-10-17 08:29] VITALS: BP 93/53
[2020-10-17] MEDS: FAMOTIDINE 20 MG TABLET PO SCH (08:41)
[2020-10-17] MEDS: CLOPIDOGREL 75 MG TABLET PO SCH (08:41)
[2020-10-17] MEDS: ASPIRIN EC 81 MG TABLET.DR PO SCH (08:41)
[2020-10-17] MEDS: FUROSEMIDE 20 MG/2 ML VIAL IV SCH (08:42)
[2020-10-17] MEDS: ESCITALOPRAM OXALATE 10 MG TABLET PO SCH (08:42)
[2020-10-17] MEDS: MIRALAX 17 GM POWD.PACK PO SCH (08:42)
[2020-10-17 15:58] LABS: HEMATOCRIT 35.9 % (36.7-47.1); MEAN CORPUSCULAR HEMOGLOBIN 23.5 uug (23.8-33.4); PLATELET COUNT (AUTO) 188 K/uL (152-348)
[2020-10-17 16:02] LABS: CARBON DIOXIDE 25 mmol/L (21-32); CHLORIDE 105 mmol/L (98-107); CREATININE 2.8 mg/dL (0.6-1.3); GLUCOSE 122 mg/dL (74-106); POTASSIUM 4.2 mmol/L (3.5-5.1); UREA NITROGEN, BLOOD 46 mg/dL (7-18)
--- NOTE | 2020-10-17 19:09 | NUR ---
PT A/OX3, SOMETIMES FORGETFUL, PT IN BED RESTING, ALL MEDICATIONS GIVEN ORDERED, ALL NEEDS MET THIS SHIFT, FAMILY AT BEDSIDE. PT ON 2L O2 VIA NC, NO SIGNS OF DISTRESS, NO REPORTS OF PAIN AT THIS TIME. PT VOIDING VIA DIAPER, IV ON THE LEFT UA PICC LINE AND PERMACATH ON THE RIGHT IJ, NO SIGNS OF BLEEDING, INTACT. CALL LIGHT WITHIN REACH, WILL ENDORSE TO ONCOMING NURSE.
[2020-10-17 20:00] VITALS: BP 106/60
[2020-10-17] MEDS: DOXEPIN 10 MG CAPSULE PO SCH (20:33)
[2020-10-17] MEDS: ATORVASTATIN 40 MG TABLET PO SCH (20:33)
[2020-10-17] MEDS: CLONAZEPAM 1 MG TABLET PO PRN (21:27)
--- NOTE | 2020-10-17 21:30 | NUR ---
Received pt resting in bed. AAO x3, forgetful. On 2L O2 via NC, no acute distress noted. Denies pain/ discomfort. Due meds given as ordered. Safety measures maintained. Encouraged to use call light. Personal items within reach. Will continue to monitor.
[2020-10-17] MEDS: ONDANSETRON 4 MG/2 ML VIAL IV PRN (22:16)
--- NOTE | 2020-10-17 22:30 | NUR ---
Pt felt nauseous, no emesis. Notified Dr. Nixon with new order for Zofran IV 4mg Q6H PRN. Carried out order with relief. Will continue to monitor.
[2020-10-18 04:00] VITALS: BP 112/63
[2020-10-18 07:53] LABS: CARBON DIOXIDE 27 mmol/L (21-32); CHLORIDE 102 mmol/L (98-107); CREATININE 2.9 mg/dL (0.6-1.3); GLUCOSE 131 mg/dL (74-106); MAGNESIUM 2.4 mg/dL (1.8-2.4); PHOSPHOROUS 3.9 mg/dL (2.5-4.9); POTASSIUM 3.9 mmol/L (3.5-5.1); UREA NITROGEN, BLOOD 47 mg/dL (7-18)
--- NOTE | 2020-10-18 08:00 | NUR ---
RESTING IN BED WITH NO SS OF PAIN, N/V. RIGHT IJ DIALYSIS CATHETER INTACT WITH NO SIGNS OF BLEEDING WILL CONTINUE TO OBSERVE
[2020-10-18 08:10] VITALS: BP 108/61
[2020-10-18] MEDS: ESCITALOPRAM OXALATE 10 MG TABLET PO SCH (08:18)
[2020-10-18] MEDS: CLOPIDOGREL 75 MG TABLET PO SCH (08:18)
[2020-10-18] MEDS: ASPIRIN EC 81 MG TABLET.DR PO SCH (08:18)
[2020-10-18] MEDS: FAMOTIDINE 20 MG TABLET PO SCH (08:18)
[2020-10-18] MEDS: FUROSEMIDE 20 MG/2 ML VIAL IV SCH (08:18)
[2020-10-18 08:19] LABS: HEMATOCRIT 37.9 % (36.7-47.1); MEAN CORPUSCULAR HEMOGLOBIN 23.1 uug (23.8-33.4); MEAN CORPUSCULAR VOLUME 78.2 fL (73.0-96.2); PLATELET COUNT (AUTO) 214 K/uL (152-348)
[2020-10-18] MEDS: CARVEDILOL 3.125 MG TABLET PO SCH ×2 (08:19→17:04)
[2020-10-18] MEDS: MIRALAX 17 GM POWD.PACK PO SCH (08:19)
[2020-10-18] MEDS: NEPRO (VANILLA) 237 ML CAN PO SCH (08:19)
[2020-10-18] MEDS: Z GUARD REMEDY PASTE 57 GM TUBE TOP SCH ×2 (09:09→21:00)
--- NOTE | 2020-10-18 10:00 | NUR ---
CONTINUE WITH CURRENT TX PLAN ORDERED, PHYSICAL THERAPY TOLERATED
[2020-10-18] MEDS: ONDANSETRON 4 MG/2 ML VIAL IV PRN ×2 (11:08→18:45)
[2020-10-18 11:25] VITALS: BP 109/64
--- NOTE | 2020-10-18 12:00 | NUR ---
MEDICATED WITH ZOFRAN WITH GOOD RELIEF
[2020-10-18 12:59] LABS: LYMPHOCYTES % (MANUAL) 5 % (20-40); MONOCYTES % (MANUAL) 2 % (2-10); NEUTROPHILS % (MANUAL) 93 % (42-75)
[2020-10-18 15:22] VITALS: BP 106/66
--- NOTE | 2020-10-18 15:45 | NUR ---
PATIENT REMAINS WITH POOR APPETITE, C/O X1 NAUSEA RELIVED WITH X1 IV ZOFRAN
[2020-10-18 20:00] VITALS: BP 102/53
--- NOTE | 2020-10-18 20:30 | NUR ---
patient with complaints of dizziness and claims he feels like he will pass out,repositioned and kept comfortable. was givemn Addendum: 10/18/20 at 2032 by HOUSEKEEPING/LAUNDRY SUPERVISOR RN zofran dose given at 1830 hours for nausea, claims he currently is nauseous and vomited a small amount of clear vomitus,vital signs checked , sat 100 % of 2l nasal cannula
[2020-10-18] MEDS: ATORVASTATIN 40 MG TABLET PO SCH (20:49)
[2020-10-18] MEDS: DOXEPIN 10 MG CAPSULE PO SCH (20:50)
[2020-10-18] MEDS: CLONAZEPAM 1 MG TABLET PO PRN (21:21)
--- NOTE | 2020-10-18 21:40 | NUR ---
Dr Gann informed that the patient is anxious ,vital signs checked and clonopin dose given , but patient is short of breath and very anxious, Rt paged to assess the patient as the patient is short of breath. with orders and carried out.,
--- NOTE | 2020-10-18 21:48 | NUR ---
ekg done . stat abg ordered, Rt is informed Addendum: 10/18/20 at 2150 by BRAILLE AND TALKING BOOKS CLERK RN lele not available, requested from the pharmacy.
[2020-10-18 21:50] VITALS: BP 117/56
--- NOTE | 2020-10-18 21:54 | NUR ---
chest xray done, awaiting result.
[2020-10-18 22:06] LABS: ABG HCO3 20.2 mmol/L; ABG PCO2 38.1 mmHg (35.0-45.0); ABG PH 7.342 (7.350-7.450); ABG PO2 101.7 mmHg (75.0-100.0); ABG SITE RIGHT BRACHIAL; ABG TOTAL HEMOGLOBIN 12.3 G/dL (13.5-18.0); COHb 1.5 % (0.5-1.5); MetHb 0.3 % (0.0-1.5); O2Hb 96.3 % (94.0-97.0); VENT MODE Nasal Cannula
--- NOTE | 2020-10-18 22:33 | NUR ---
abg result relayed to the physician with no further orders, saturation monitored and stable at 100 % on 2 liters nasal cannula.awaiting for the chest xray result,dozing off intermittently
--- NOTE | 2020-10-18 23:01 | NUR ---
asleep saturation 100 % stableon 2litrrs nasal cannula. observed closely
[2020-10-19] VITALS: BP 108/60
--- NOTE | 2020-10-19 01:30 | NUR ---
asleep.continous saturation monitor on .stable at 99 to 100 % on 2liters nasal cannula
[2020-10-19 05:25] VITALS: BP 121/69
--- NOTE | 2020-10-19 05:36 | NUR ---
Dr Finch informed about the chest xray result and the change in the wbc to 19.1. with no further orders made
[2020-10-19 07:35] LABS: HEMATOCRIT 35.2 % (36.7-47.1); MEAN CORPUSCULAR HEMOGLOBIN 23.8 uug (23.8-33.4); MEAN CORPUSCULAR VOLUME 78.6 fL (73.0-96.2); PLATELET COUNT (AUTO) 199 K/uL (152-348)
[2020-10-19] MEDS: CARVEDILOL 3.125 MG TABLET PO SCH ×2 (07:48→18:00)
[2020-10-19 08:00] VITALS: BP 107/72
[2020-10-19] MEDS: FAMOTIDINE 20 MG TABLET PO SCH (08:00)
[2020-10-19] MEDS: ESCITALOPRAM OXALATE 10 MG TABLET PO SCH (08:00)
[2020-10-19] MEDS: CLOPIDOGREL 75 MG TABLET PO SCH (08:00)
[2020-10-19] MEDS: ASPIRIN EC 81 MG TABLET.DR PO SCH (08:00)
[2020-10-19] MEDS: FUROSEMIDE 20 MG/2 ML VIAL IV SCH (08:00)
--- NOTE | 2020-10-19 08:00 | NUR ---
RESTING COMFORTABLY, NO SS OF PAIN OR SOB AWAITING PLACEMENT
[2020-10-19] MEDS: MIRALAX 17 GM POWD.PACK PO SCH (08:01)
[2020-10-19] MEDS: Z GUARD REMEDY PASTE 57 GM TUBE TOP SCH ×2 (08:01→20:07)
[2020-10-19 08:10] LABS: CARBON DIOXIDE 26 mmol/L (21-32); CHLORIDE 103 mmol/L (98-107); CREATININE 3.1 mg/dL (0.6-1.3); GLUCOSE 108 mg/dL (74-106); MAGNESIUM 2.7 mg/dL (1.8-2.4); PHOSPHOROUS 4.9 mg/dL (2.5-4.9); POTASSIUM 4.4 mmol/L (3.5-5.1); UREA NITROGEN, BLOOD 52 mg/dL (7-18)
[2020-10-19] MEDS: NEPRO (VANILLA) 237 ML CAN PO SCH (08:21)
--- NOTE | 2020-10-19 11:00 | NUR ---
SEEN BY DR ALEXANDRA FOR FOLLOW-UP SEE NOTES.
[2020-10-19 16:16] VITALS: BP 117/67
--- NOTE | 2020-10-19 16:20 | NUR ---
seen by dr henry spoke with grand daughter regarding dc planning see notes
--- NOTE | 2020-10-19 19:20 | NUR ---
RECEIVED PT AWAKE, ALERT AND ORIENTEDX3.PT IN NO ACUTE DISTRESS. SAFETY AND COMFORT PROVIDED.WILL CONTINUE TO MONITOR.
--- NOTE | 2020-10-19 19:30 | NUR ---
PT SLEPT INTERMITTENTLY. PT IN NO ACUTE DISTRESS. IV INTACT. SAFETY AND COMFORT PROVIDED. WILL CONTINUE TO MONITOR. Addendum: 10/20/20 at 0622 by ALBER LOU RN WRONG PT
[2020-10-19 20:00] VITALS: BP 117/60
[2020-10-19] MEDS: DOXEPIN 10 MG CAPSULE PO SCH (20:03)
[2020-10-19] MEDS: ATORVASTATIN 40 MG TABLET PO SCH (20:03)
[2020-10-20 04:00] VITALS: BP 113/69
--- NOTE | 2020-10-20 06:20 | NUR ---
PT SLEPT INTERMITTENTLY.PT IN NO ACUTE DISTRESS. PRESCRIBED MEDICATION GIVEN AND PT TOLERATED IT WELL . SAFETY AND COMFORT PROVIDED.WILL ENDORSE TO INCOMING NURSE FOR CONTINUITY OF CARE.
[2020-10-20 06:57] LABS: CARBON DIOXIDE 28 mmol/L (21-32); CHLORIDE 104 mmol/L (98-107); CREATININE 2.9 mg/dL (0.6-1.3); GLUCOSE 100 mg/dL (74-106); MAGNESIUM 2.3 mg/dL (1.8-2.4); PHOSPHOROUS 3.9 mg/dL (2.5-4.9); POTASSIUM 3.9 mmol/L (3.5-5.1); UREA NITROGEN, BLOOD 49 mg/dL (7-18)
--- NOTE | 2020-10-20 07:59 | NUR ---
RECEIVED PATIENT IN BED ALERT TO SELF ON ROOM AIR WITH NO SOB AT THIS TIME HE HAS AMID LINE WITH IS PATENT AND INTACT ALL NEEDS ANTICIPATED AND SATISFIED CALL LIGHTS AND PERSONAL BELONGINGS ARE WITHIN EASY REACH AT THIS TIME WILL CONTINUE TO OBSERVE.
[2020-10-20 08:22] VITALS: BP 119/63
[2020-10-20] MEDS: MIRALAX 17 GM POWD.PACK PO SCH (09:00)
[2020-10-20] MEDS: CARVEDILOL 3.125 MG TABLET PO SCH ×2 (09:07→17:00)
[2020-10-20] MEDS: ASPIRIN EC 81 MG TABLET.DR PO SCH (09:07)
[2020-10-20] MEDS: CLOPIDOGREL 75 MG TABLET PO SCH (09:07)
[2020-10-20] MEDS: FAMOTIDINE 20 MG TABLET PO SCH (09:08)
[2020-10-20] MEDS: FUROSEMIDE 20 MG/2 ML VIAL IV SCH ×2 (09:08→16:59)
[2020-10-20] MEDS: ESCITALOPRAM OXALATE 10 MG TABLET PO SCH (09:08)
[2020-10-20] MEDS: Z GUARD REMEDY PASTE 57 GM TUBE TOP SCH ×2 (09:22→20:11)
[2020-10-20] MEDS: NEPRO (VANILLA) 237 ML CAN PO SCH (09:22)
--- NOTE | 2020-10-20 11:00 | NUR ---
DR MERY ELI HERE AND AWARE THAT PATIENTS DAUGHTER LIBBY IS WAITING FOR HIS CALL RE NEXT PLAN OF CARE CAROLYNE PHONE NUMBER GIVEN TO HIM AND HE STATED WILL CALL HER
[2020-10-20 11:57] VITALS: BP 120/45
--- NOTE | 2020-10-20 14:00 | NUR ---
PATIENT SEEN AND EXAMINED BY DR MERY ELI WITH NO NEW ORDERS AT THIS TIME.
[2020-10-20 14:23] LABS: HEMATOCRIT 35.2 % (36.7-47.1); MEAN CORPUSCULAR VOLUME 79.2 fL (73.0-96.2)
[2020-10-20 14:24] LABS: MEAN CORPUSCULAR HEMOGLOBIN 23.3 uug (23.8-33.4); PLATELET COUNT (AUTO) 196 K/uL (152-348)
[2020-10-20 15:56] VITALS: BP 118/63
[2020-10-20 16:38] LABS: EOSINOPHILS % (MANUAL) 1 % (0-8); LYMPHOCYTES % (MANUAL) 6 % (20-40); MONOCYTES % (MANUAL) 8 % (2-10); NEUTROPHILS % (MANUAL) 85 % (42-75)
--- NOTE | 2020-10-20 18:14 | NUR ---
DR [facility] HERE AND SEEN PATIENT AND SPOKE WITH PATIENTS AND NOTIFIED HER THAT PATIENT MAY NEED ANOTHER ROUND OF DIALYSIS BEFORE BEING DISCHARGED AND THE PATIENTS STATED THAT THE TELEX OPERATOR HAD TOLD HER THAT SHE WAS STILL WAITING FOR THE AUTHORIZATION FROM THE PATIENTS INSURANCE IN TERMS OF PLACEMENT.
--- NOTE | 2020-10-20 19:30 | NUR ---
RECEIVED PT AWAKE, ALERT AND ORIENTEDX3. PT IN NO ACUTE DISTRESS. IV INTACT. IJ INTACT. PT ON 2L NASAL CANNULA. SAFETY AND COMFORT PROVIDED. WILL CONTINUE TO MONITOR.
[2020-10-20] MEDS: DOXEPIN 10 MG CAPSULE PO SCH (20:10)
[2020-10-20] MEDS: ATORVASTATIN 40 MG TABLET PO SCH (20:10)
[2020-10-20 20:39] VITALS: BP 99/54
[2020-10-20] MEDS: CLONAZEPAM 1 MG TABLET PO PRN (21:39)
--- NOTE | 2020-10-20 22:04 | NUR ---
PT GIVEN KLONOPIN 1MG AT 2139H FOR RESTLESSNESS. PT TOLERATED IT WELL. WILL CONTINUE TO MONITOR.
[2020-10-21 04:49] VITALS: BP 111/63
[2020-10-21] MEDS: ONDANSETRON 4 MG/2 ML VIAL IV PRN ×2 (05:52→17:44)
--- NOTE | 2020-10-21 06:31 | NUR ---
PT SLEPT INTERMITTENTLY. PT IN NO ACUTE DISTRESS. IV INTACT. PRESCRIBED MEDICATION GIVEN AND PT TOLERATED IT WELL. ZOFRAN PRN GIVEN FOR NAUSEA. PT TOLERATED IT WELL. PT TURNED AND REPOSITIONED.SAFETY AND COMFORT PROVIDED. WILL ENDORSE TO INCOMING NURSE FOR CONTINUITY OF CARE.
[2020-10-21] MEDS: CARVEDILOL 3.125 MG TABLET PO SCH ×2 (08:00→17:45)
[2020-10-21 08:15] VITALS: BP 99/52
[2020-10-21] MEDS: ASPIRIN EC 81 MG TABLET.DR PO SCH (08:24)
[2020-10-21] MEDS: CLOPIDOGREL 75 MG TABLET PO SCH (08:24)
[2020-10-21] MEDS: FAMOTIDINE 20 MG TABLET PO SCH (08:24)
[2020-10-21] MEDS: ESCITALOPRAM OXALATE 10 MG TABLET PO SCH (08:24)
[2020-10-21] MEDS: MIRALAX 17 GM POWD.PACK PO SCH (08:25)
[2020-10-21] MEDS: NEPRO (VANILLA) 237 ML CAN PO SCH (08:25)
[2020-10-21] MEDS: FUROSEMIDE 20 MG/2 ML VIAL IV SCH (08:27)
[2020-10-21] MEDS: Z GUARD REMEDY PASTE 57 GM TUBE TOP SCH (08:27)
[2020-10-21 10:08] LABS: HEPATITIS B SURFACE AB NON REACTIVE; HEPATITIS B SURFACE AG NEGATIVE
[2020-10-21 11:45] VITALS: BP 117/62
[2020-10-21 15:41] VITALS: BP 121/73
[2020-10-21] MEDS ORDERED: Nepro PO (17:35)
[2020-10-21] MEDS ORDERED: FURO40TA5 PO (17:35)
[2020-10-21] MEDS ORDERED: PANT40TA2 PO (17:35)
[2020-10-21] MEDS ORDERED: ATOR40TA PO (17:35)
[2020-10-21] MEDS ORDERED: MENT71OI TOP (17:35)
[2020-10-21] MEDS ORDERED: ASPI-618 PO (17:35)
[2020-10-21] MEDS ORDERED: FOLI0.8T2 PO (17:35)
--- NOTE | 2020-10-21 18:30 | NUR ---
pt has an order for discharge. received call from AGNIESZKA saying [facility] and transportation will pick him up @1930. I informed and daughter who were at bedside. (R) IJ danielle cath was removed by Dr. Nixon earlier today. dressing dry, no bleeding. midline removed as per Dr. Finch's orders. report given to Brianna from [facility]. discharge packet done, pictures taken. report given to shift supervisor melting PIERRE Taylor regarding discharge and transportation pick up and delivery driver.
--- NOTE | 2020-10-21 20:21 | NUR ---
Pt discharged from unit by LENO Nguyen, going to [facility], in stable condition at 2020H.
[2020-10-22] MEDS ORDERED: FUROSEMIDE 40 MG TABLET PO SCH (09:00)
== END 2020-10-21 23:34 | DRG 682 ==
LOC: MEDSURG3 13:37
PROVIDERS: ADMIT Nurse Practitioner Acute Care; ATTEND Internal Medicine
PROC: 5A1D70Z Performance of Urinary Filtration, Intermittent, Less than 6 Hours Per Day (ICD-10-PCS; principal; 2020-10-15)
DX: N17.0 Acute kidney failure with tubular necrosis (principal); I50.43 Acute on chronic combined systolic (congestive) and diastolic (congestive) heart failure; E43 Unspecified severe protein-calorie malnutrition; K76.7 Hepatorenal syndrome; D68.59 Other primary thrombophilia; R18.8 Other ascites; J90 Pleural effusion, not elsewhere classified; I13.0 Hypertensive heart and chronic kidney disease with heart failure and stage 1 through stage 4 chronic kidney disease, or unspecified chronic kidney disease; D50.9 Iron deficiency anemia, unspecified; D63.8 Anemia in other chronic diseases classified elsewhere; Z74.09 Other reduced mobility; E78.5 Hyperlipidemia, unspecified; F32.9 Major depressive disorder, single episode, unspecified; I25.5 Ischemic cardiomyopathy; Z95.810 Presence of automatic (implantable) cardiac defibrillator; Z95.5 Presence of coronary angioplasty implant and graft; Z86.73 Personal history of transient ischemic attack (TIA), and cerebral infarction without residual deficits; R31.9 Hematuria, unspecified; E80.6 Other disorders of bilirubin metabolism; D72.829 Elevated white blood cell count, unspecified; T45.515A Adverse effect of anticoagulants, initial encounter; I25.2 Old myocardial infarction; I25.10 Atherosclerotic heart disease of native coronary artery without angina pectoris; Z87.440 Personal history of urinary (tract) infections; Z79.02 Long term (current) use of antithrombotics/antiplatelets; Z79.82 Long term (current) use of aspirin; R74.8 Abnormal levels of other serum enzymes; R53.1 Weakness; E66.9 Obesity, unspecified; Z68.25 Body mass index [BMI] 25.0-25.9, adult; N14.1 Nephropathy induced by other drugs, medicaments and biological substances; Z20.822 Contact with and (suspected) exposure to COVID-19; N18.4 Chronic kidney disease, stage 4 (severe)
CPT/HCPCS: 36415; 36600; 70030-TC; 71045; 76705; 83690; 83735; 84100; 85018; 85025; 86704; 86705; 86706; 86803; 87040; 87340; 90937; G0378; J1940; J2405; J2543; J3490; J7030; J7050; J7060; P9047